=== PATIENT | female | born 1990 | race Caucasian/White ===

== ENCOUNTER 2016-06-24 20:36 | Inpatient (IN) | payer MEDICAID, OTHER ==
[~2016-06-24] VITALS: Ht 180.3 cm; Wt 80.7 kg
[2016-06-24 21:24] LABS: BASOPHILS # (AUTO) 0.08 K/uL (0.00-0.20); BASOPHILS % (AUTO) 0.9 % (0.0-2.0); EOSINOPHILS # (AUTO) 0.21 K/uL (0.00-0.70); HEMOGLOBIN 14.4 g/dL (12.0-16.0); LYMPHOCYTES # (AUTO) 4.8 K/uL (1.0-4.8); LYMPHOCYTES % (AUTO) 51.5 % (22.0-44.0); MEAN CORPUSCULAR HEMOGLOBIN 28.9 pg (26.0-34.0); MEAN CORPUSCULAR HGB CONC 33.4 G/dL (31.0-37.0); MEAN CORPUSCULAR VOLUME 87 fL (80-100); MONOCYTES # (AUTO) 0.6 K/uL (0.1-1.0); MONOCYTES % (AUTO) 6.7 % (2.0-9.0); NEUTROPHILS # (AUTO) 3.6 K/uL (1.8-7.7); NEUTROPHILS % (AUTO) 38.7 % (40.0-70.0); PLATELET COUNT (AUTO) 359 K/uL (150-450); RED BLOOD CELL COUNT(AUTO) 4.96 MIL/uL (4.00-5.20); RED CELL DISTRIBUTION WIDTH 14.1 % (11.5-14.5); WHITE BLOOD COUNT (AUTO) 9.3 K/uL (4.5-11.0)
[2016-06-24] MEDS ORDERED: SODIUM CHLORIDE 0.9% 1,000 ML IV ONE (21:28)
[2016-06-24 21:42] LABS: ANION GAP 15 mmol/L (8-16); CALCIUM, TOTAL 9.5 mg/dL (8.8-10.5); CARBON DIOXIDE 23 mmol/L (22-29); CHLORIDE 110 mmol/L (98-107); CREATININE 0.88 mg/dL (0.60-1.30); GLOMERULAR FILTR. RATE CALC > 60 mL/min (>60); POTASSIUM 3.4 mmol/L (3.5-5.1); SODIUM SERUM 148 mmol/L (136-145); UREA NITROGEN, BLOOD 10 mg/dL (7-18)
[2016-06-24 21:47] LABS: ACETAMINOPHEN 13 mcg/mL (10-30); ALANINE AMINOTRANSFERASE 20 U/L (12-78); ALBUMIN 4.5 g/dL (3.4-5.0); ASPARTATE AMINOTRANSFERASE 11 U/L (15-37); BILIRUBIN,TOTAL 0.2 mg/dL (0.1-1.0); TOTAL PROTEIN, SERUM 8.4 g/dL (6.4-8.2)
[2016-06-24] MEDS ORDERED: LORazepam 2 MG/ML VIAL IM ONE (22:15)
[2016-06-24] MEDS ORDERED: HALOPERIDOL LACTATE 5 MG/ML VIAL IM ONE (22:15)
[2016-06-24 23:30] LABS: SALICYLATE 17.7 mg/dL (2.8-20.0)
[2016-06-25] MEDS ORDERED: SODIUM CHLORIDE 0.9% 1,000 ML IV ONE
[2016-06-25] MEDS ORDERED: HALOPERIDOL 5 MG TABLET PO PRN (00:30)
[2016-06-25] MEDS ORDERED: LORazepam 2 MG TABLET PO PRN (00:30)
[2016-06-25] MEDS ORDERED: ZOLPIDEM TARTRATE 10 MG TABLET PO PRN (00:30)
[2016-06-25 02:58] LABS: ANION GAP 14 mmol/L (8-16); CARBON DIOXIDE 23 mmol/L (22-29); CHLORIDE 111 mmol/L (98-107); CREATININE 0.82 mg/dL (0.60-1.30); GLOMERULAR FILTR. RATE CALC > 60 mL/min (>60); POTASSIUM 3.7 mmol/L (3.5-5.1); SODIUM SERUM 148 mmol/L (136-145); UREA NITROGEN, BLOOD 10 mg/dL (7-18)
[2016-06-25 03:03] LABS: CHOL/HDL RATIO 2.8 (3.9-5.7)
[2016-06-25 03:21] LABS: SALICYLATE 18.8 mg/dL (2.8-20.0)
[2016-06-25 06:44] LABS: SALICYLATE 16.9 mg/dL (2.8-20.0)
[2016-06-25] MEDS ORDERED: LISD50CA PO (10:51)
[2016-06-25] MEDS ORDERED: ESCI10TA PO (10:51)
[2016-06-25 12:05] VITALS: BP 142/99
[2016-06-25 17:19] VITALS: BP 145/78
[2016-06-25] MEDS ORDERED: IBUPROFEN 400 MG TABLET PO PRN (21:00)
[2016-06-25] MEDS ORDERED: ACETAMINOPHEN 325 MG TABLET PO PRN (21:00)
[2016-06-26 06:52] LABS: BASOPHILS # (AUTO) 0.04 K/uL (0.00-0.20); BASOPHILS % (AUTO) 0.6 % (0.0-2.0); EOSINOPHILS # (AUTO) 0.05 K/uL (0.00-0.70); EOSINOPHILS % (AUTO) 0.65 % (1.0-6.0); HEMATOCRIT 39.4 % (36-46); HEMOGLOBIN 13.3 g/dL (12.0-16.0); LYMPHOCYTES # (AUTO) 1.8 K/uL (1.0-4.8); MEAN CORPUSCULAR HEMOGLOBIN 29.3 pg (26.0-34.0); MEAN CORPUSCULAR HGB CONC 33.7 G/dL (31.0-37.0); MEAN CORPUSCULAR VOLUME 87 fL (80-100); MONOCYTES # (AUTO) 0.4 K/uL (0.1-1.0); MONOCYTES % (AUTO) 5.1 % (2.0-9.0); NEUTROPHILS # (AUTO) 4.9 K/uL (1.8-7.7); NEUTROPHILS % (AUTO) 68.7 % (40.0-70.0); PLATELET COUNT (AUTO) 295 K/uL (150-450); RED BLOOD CELL COUNT(AUTO) 4.53 MIL/uL (4.00-5.20); RED CELL DISTRIBUTION WIDTH 13.8 % (11.5-14.5); WHITE BLOOD COUNT (AUTO) 7.2 K/uL (4.5-11.0)
[2016-06-26 07:56] LABS: CHOL/HDL RATIO 2.7 (3.9-5.7); THYROID STIMULATING HORMONE 0.75 uIU/mL (0.36-3.74)
[2016-06-26 08:16] VITALS: BP 130/73
[2016-06-26] MEDS: ESCITALOPRAM OXALATE 10 MG TABLET PO SCH (10:41)
[2016-06-26 17:40] LABS: HEMOGLOBIN A1C 5.1 % (4.5-6.2)
[2016-06-26 20:36] VITALS: BP 138/92
[2016-06-27] MEDS: ESCITALOPRAM OXALATE 10 MG TABLET PO SCH (10:28)
[2016-06-27 19:38] VITALS: BP 146/88
[2016-06-28 08:10] VITALS: BP 142/81
[2016-06-28] MEDS: ESCITALOPRAM OXALATE 10 MG TABLET PO SCH (09:33)
== END 2016-06-28 13:35 | disposition home or self-care (01) | DRG 751 ==
LOC: EMS 20:43 → 3EC 06-25 02:19 → 3EI 06-25 14:27
DX: F33.3 Major depressive disorder, recurrent, severe with psychotic symptoms (principal); E87.0 Hyperosmolality and hypernatremia; E66.9 Obesity, unspecified; F43.10 Post-traumatic stress disorder, unspecified; F10.10 Alcohol abuse, uncomplicated; F19.10 Other psychoactive substance abuse, uncomplicated; I10 Essential (primary) hypertension; T39.312A Poisoning by propionic acid derivatives, intentional self-harm, initial encounter; X58.XXXA Exposure to other specified factors, initial encounter; T39.1X2A Poisoning by 4-Aminophenol derivatives, intentional self-harm, initial encounter; T39.012A Poisoning by aspirin, intentional self-harm, initial encounter; Y92.89 Other specified places as the place of occurrence of the external cause; Y99.8 Other external cause status; Y93.89 Activity, other specified; Z72.89 Other problems related to lifestyle; Z71.51 Drug abuse counseling and surveillance of drug abuser; Z79.899 Other long term (current) drug therapy; Z71.41 Alcohol abuse counseling and surveillance of alcoholic; Z68.24 Body mass index [BMI] 24.0-24.9, adult
CPT/HCPCS: 83036; 84443; 96360; 96361; 96372; 99291; G0480; G0481; J1630; J2060; J7030

== ENCOUNTER 2017-01-27 12:54 | Emergency (ER) | payer MEDICAID, OTHER ==
[~2017-01-27] VITALS: Ht 175.3 cm; Wt 77.3 kg
[2017-01-27] MEDS ORDERED: LISD50CA PO (12:59)
[2017-01-27 13:53] VITALS: BP 140/96
[2017-01-27 14:00] LABS: BASOPHILS % (AUTO) 0.9 % (0.0-2.0); EOSINOPHILS % (AUTO) 2.1 % (1.0-6.0); HEMATOCRIT 37.8 % (36-46); LYMPHOCYTES # (AUTO) 1.6 K/uL (1.0-4.8); LYMPHOCYTES % (AUTO) 49.3 % (22.0-44.0); MEAN CORPUSCULAR HEMOGLOBIN 29.5 pg (26.0-34.0); MEAN CORPUSCULAR HGB CONC 34.4 G/dL (31.0-37.0); MEAN CORPUSCULAR VOLUME 86 fL (80-100); MONOCYTES # (AUTO) 0.3 K/uL (0.1-1.0); MONOCYTES % (AUTO) 8.2 % (2.0-9.0); NEUTROPHILS # (AUTO) 1.3 K/uL (1.8-7.7); NEUTROPHILS % (AUTO) 39.5 % (40.0-70.0); PLATELET COUNT (AUTO) 176 K/uL (150-450); RED CELL DISTRIBUTION WIDTH 14.1 % (11.5-14.5); WHITE BLOOD COUNT (AUTO) 3.2 K/uL (4.5-11.0)
[2017-01-27 14:15] LABS: RBC MORPHOLOGY COMMENT NORMAL RBC MORPH
[2017-01-27] MEDS ORDERED: LORazepam 2 MG/ML VIAL IM ONE (14:30)
[2017-01-27 14:36] LABS: ANION GAP 8 mmol/L (8-16); CALCIUM, TOTAL 8.9 mg/dL (8.8-10.5); CARBON DIOXIDE 28 mmol/L (22-29); CHLORIDE 106 mmol/L (98-107); CREATININE 0.79 mg/dL (0.60-1.30); GLOMERULAR FILTR. RATE CALC > 60 mL/min (>60); POTASSIUM 3.9 mmol/L (3.5-5.1); SODIUM SERUM 142 mmol/L (136-145); UREA NITROGEN, BLOOD 7 mg/dL (7-18)
[2017-01-27 14:42] LABS: ALANINE AMINOTRANSFERASE 33 U/L (12-78); ALBUMIN 3.5 g/dL (3.4-5.0); ASPARTATE AMINOTRANSFERASE 27 U/L (15-37); BILIRUBIN,TOTAL 0.6 mg/dL (0.1-1.0); TOTAL PROTEIN, SERUM 6.8 g/dL (6.4-8.2)
== END 2017-01-27 15:26 | disposition home or self-care (01) ==
LOC: EMS 12:54
DX: F41.0 Panic disorder [episodic paroxysmal anxiety] (principal); R00.2 Palpitations
CPT/HCPCS: 36415; 80053; 85025; 93005; 96372; 99285; J2060

== ENCOUNTER 2017-04-04 08:49 | Emergency (ER) | payer OTHER ==
[~2017-04-04] VITALS: Ht 162.6 cm; Wt 68.2 kg
[~2017-04-04 08:49] MED LIST: LISD50CA PO
[2017-04-04] MEDS ORDERED: BUPR75 PO (09:10)
[2017-04-04 09:18] VITALS: BP 139/77
[2017-04-04] MEDS ORDERED: HydrOXYzine PAMOATE 50 MG CAPSULE PO ONE (09:30)
== END 2017-04-04 09:34 | disposition home or self-care (01) ==
LOC: EMS 08:51
DX: F41.0 Panic disorder [episodic paroxysmal anxiety] (principal); I10 Essential (primary) hypertension
CPT/HCPCS: 99283

== ENCOUNTER 2017-04-20 14:36 | Emergency (ER) | payer OTHER ==
[~2017-04-20] VITALS: Ht 175.3 cm; Wt 68.0 kg
[~2017-04-20 14:36] MED LIST changes: +BUPR75 PO
[2017-04-20 18:47] VITALS: BP 96/64
[2017-04-20 19:00] LABS: AMPHET/METH SCREEN,URINE POSITIVE (NEGATIVE); BARBITURATE SCREEN, URINE NEGATIVE (NEGATIVE); BENZODIAZEPINES SCREEN,URINE NEGATIVE (NEGATIVE); CANNABINOID SCREEN,URINE NEGATIVE (NEGATIVE); COCAINE SCREEN,URINE NEGATIVE (NEGATIVE); METHADONE SCREEN, URINE NEGATIVE (NEGATIVE); OPIATE SCREEN,URINE NEGATIVE (NEGATIVE); PHENCYCLIDINE SCREEN,URINE NEGATIVE (NEGATIVE)
== END 2017-04-20 19:23 | disposition home or self-care (01) ==
LOC: EMS 14:38
DX: F11.10 Opioid abuse, uncomplicated (principal); F31.9 Bipolar disorder, unspecified
CPT/HCPCS: 99283